=== PATIENT | female | born 1950 | race Two or more races ===

== ENCOUNTER 2018-02-26 12:01 | Outpatient (CLI) | payer OTHER ==
[~2018-02-26 12:01] MED LIST: CALCIUM1 TAB; CEFADROXIL500 MG; DIOVAN160 M1; FERROUS SU324 ( 65 ) PO; FOLIC ACID1 MG PO; FOSAMAX70 MG/75 M; GABAPENTIN300 M1; LIPITOR20 MG; METFORMIN HCL500 MG; VOLTAREN75 MG
== END 2018-02-26 12:08 | disposition home or self-care (01) ==
LOC: RAD 12:01
DX: J44.0 Chronic obstructive pulmonary disease with (acute) lower respiratory infection (principal); M15.8 Other polyosteoarthritis

== ENCOUNTER 2018-03-04 09:55 | Outpatient (CLI) | payer OTHER | END 2018-03-04 10:02 | disposition home or self-care (01) | LOC: SONOGRAMA 09:55 | DX: D25.9 Leiomyoma of uterus, unspecified (principal) ==

== ENCOUNTER 2018-08-23 14:32 | Outpatient (CLI) | payer OTHER | END 2018-08-23 14:45 | disposition home or self-care (01) | LOC: OFIC 805 14:32 | DX: L29.8 Other pruritus (principal); H61.21 Impacted cerumen, right ear ==

== ENCOUNTER 2021-01-17 12:03 | Outpatient (CLI) | payer OTHER | END 2021-01-17 14:45 | disposition home or self-care (01) | LOC: MAMO-SONO 12:03 | PROVIDERS: ATTEND General Practice | DX: R92.0 Mammographic microcalcification found on diagnostic imaging of breast (principal); N64.89 Other specified disorders of breast ==

== ENCOUNTER 2024-02-19 10:54 | Outpatient (CLI) | payer OTHER | END 2024-02-19 11:02 | disposition home or self-care (01) | LOC: MAMO-SONO 10:54 | PROVIDERS: ATTEND Surgery | DX: N60.11 Diffuse cystic mastopathy of right breast (principal); N60.12 Diffuse cystic mastopathy of left breast ==

== ENCOUNTER 2024-02-25 12:14 | Outpatient (CLI) | payer OTHER | END 2024-02-25 12:15 | disposition home or self-care (01) | LOC: NUCLEAR 12:14 | PROVIDERS: ATTEND General Practice | DX: M81.0 Age-related osteoporosis without current pathological fracture (principal) ==